=== PATIENT | female | born 1995 | race Caucasian/White ===

== ENCOUNTER → 2018-07-01 | Outpatient (CLI) | payer BC ==
[2018-07-01 19:09] LABS: HEMATOCRIT 39.6 % (37-47); HEMOGLOBIN 13.4 g/dL (12.0-16.0); MEAN CELL VOLUME 89.6 fL (80-100); MEAN CORPUSCULAR HEMOGLOBIN 30.3 pg (25-34); MEAN CORPUSCULAR HGB CONC 33.8 g/dl (32-36); MEAN PLATELET VOLUME 9.9 fL (7.4-10.4); PLATELET COUNT 162 K/uL (130-400); RED CELL DISTRIBUTION WIDTH CV 13.4 % (11.5-14.5); WHITE BLOOD COUNT 6.45 K/uL (4.8-10.8)
[2018-07-01 20:29] LABS: BASO % 1.1 %; BASO ABS # 0.07 K/uL (0-0.2); EOS % 0.8 %; EOS ABS # 0.05 K/uL (0-0.5); IG# 0.01 K/uL (0.00-0.02); LYMPH % 61.9 %; LYMPH ABS # 3.99 K/uL (1.2-3.4); MONO % 11.2 %; MONO ABS # 0.72 K/uL (0.11-0.59); NEUT % 24.8 %; NEUT ABS # 1.61 K/uL (1.4-6.5)
== END | disposition home or self-care (01) ==
LOC: C.LAB 17:58
PROVIDERS: ATTEND Family Medicine
DX: R79.0 Abnormal level of blood mineral (principal); D69.6 Thrombocytopenia, unspecified; B34.9 Viral infection, unspecified